=== PATIENT | male | born 1935 | race Caucasian/White ===

== ENCOUNTER 2023-11-04 09:01 | Observation (INO) | payer MEDICARE ==
[~2023-11-04] VITALS: Ht 182.9 cm; Wt 86.2 kg
[2023-11-04 09:24] LABS: BASOPHILS # (AUTO) 0.04 K/uL (0.00-0.20); BASOPHILS % (AUTO) 0.5 % (0.0-5.0); EOSINOPHILS # (AUTO) 0.08 K/uL (0.00-0.70); EOSINOPHILS % (AUTO) 0.9 % (0.0-8.0); HEMATOCRIT 39.5 % (42-54); IMMATURE GRANULOCYTE ABSOLUTE 0.06 K/uL (0-1); LYMPHOCYTES # (AUTO) 3.7 K/uL (1.0-4.8); LYMPHOCYTES % (AUTO) 42.7 % (21.0-51.0); MEAN CORPUSCULAR HEMOGLOBIN 30.3 pg (27.0-33.0); MEAN CORPUSCULAR HGB CONC 34.2 g/dL (32.0-36.0); MEAN CORPUSCULAR VOLUME 88.8 fL (79-99); MONOCYTES # (AUTO) 0.5 K/uL (0.1-1.0); MONOCYTES % (AUTO) 6.2 % (3.0-13.0); NEUTROPHILS # (AUTO) 4.3 K/uL (1.8-7.7); PLATELET COUNT (AUTO) 199 K/uL (130-400); RED BLOOD CELL COUNT(AUTO) 4.45 MIL/uL (4.50-6.20); RED CELL DISTRIBUTION WIDTH 13.9 % (11.0-15.5); WHITE BLOOD COUNT (AUTO) 8.8 K/uL (4.8-10.8)
[2023-11-04 09:33] LABS: CREATININE 1.2 mg/dL (0.5-1.5); POTASSIUM 3.6 mmol/L (3.5-5.1)
[2023-11-04 09:38] LABS: ALBUMIN 3.8 g/dL (3.5-5.0); BILIRUBIN,TOTAL 0.6 mg/dL (0.2-1.0); TOTAL PROTEIN, SERUM 7.4 g/dL (6.0-8.3)
[2023-11-04 09:42] LABS: INR 0.94 (0.85-1.15)
[2023-11-04 09:44] LABS: PARTIAL THROMBOPLASTIN TIME 28.2 SEC (26.3-35.5)
[2023-11-04] MEDS ORDERED: ASPIRIN 325MG TAB PO ONE (10:30)
[2023-11-04] MEDS ORDERED: INDA1.255 PO (11:07)
[2023-11-04] MEDS ORDERED: LOSA50TA64 PO (11:07)
[2023-11-04] MEDS ORDERED: PRAV80TA21 PO (11:07)
[2023-11-04] MEDS ORDERED: POTA10CA85 PO (11:07)
[2023-11-04] MEDS ORDERED: APIX5TAB PO (11:07)
[2023-11-04] MEDS ORDERED: ONDANSETRON 4MG INJ IVP PRN (17:30)
[2023-11-04] MEDS ORDERED: ACETAMINOPHEN 325 MG TAB PO PRN (17:30)
[2023-11-04] MEDS ORDERED: HYDRALAZINE 20MG/ML VIAL IV PRN (17:30)
[2023-11-04] MEDS ORDERED: ATORVASTATIN 20 MG TABLET PO SCH (21:00)
[2023-11-04] MEDS ORDERED: NON-FORMULARY MEDICATION 1 EACH (Pravastatin Sodium 80 MG) PO SCH (21:00)
[2023-11-05] MEDS ORDERED: ENOXAPARIN SODIUM 100 MG/1 ML SQ SCH ×2 (01:00→09:00)
[2023-11-05] MEDS ORDERED: ENOXAPARIN SODIUM 40 MG/0.4 ML SYRINGE SQ SCH (09:00)
[2023-11-05] MEDS ORDERED: INDAPAMIDE 1.25 MG PO SCH (09:00)
[2023-11-05] MEDS ORDERED: LOSARTAN 50 MG TABLET PO SCH (09:00)
[2023-11-05] MEDS ORDERED: REGADENOSON 0.4 MG/5 ML PF SYG IVP SCH (09:00)
[2023-11-05] MEDS ORDERED: ASPIRIN 81 MG EC TAB PO SCH (09:00)
[2023-11-05] MEDS ORDERED: FAMOTIDINE 20MG TAB PO SCH (09:00)
[2023-11-05 09:03] LABS: THYROID STIMULATING HORMONE 2.18 uIU/mL (0.36-3.74)
[2023-11-05 13:20] VITALS: BP 134/66; PULSE 66; RESP 18; O2SAT 99
== END 2023-11-05 14:55 | disposition home or self-care (01) ==
LOC: EDH 09:01 → EDHIP 10:45 → INTOOBSV 10:45 → EDHIP 11-05 14:55
PROVIDERS: ADMIT Hospitalist; ATTEND Hospitalist
DX: I20.0 Unstable angina (principal); E86.0 Dehydration; E78.5 Hyperlipidemia, unspecified; I82.401 Acute embolism and thrombosis of unspecified deep veins of right lower extremity; D68.69 Other thrombophilia; E78.00 Pure hypercholesterolemia, unspecified; I10 Essential (primary) hypertension; Z79.82 Long term (current) use of aspirin; Z79.01 Long term (current) use of anticoagulants; Z79.899 Other long term (current) drug therapy; Z87.891 Personal history of nicotine dependence; Z88.0 Allergy status to penicillin
CPT/HCPCS: 99285; 83735; 84484 ×3; 80053; 85025; 85378; 85610; 85730; 36415 ×2; 71045; 93306; 93970; 93005; 96372; 84443; 80061; 93017; 78452; G0378 ×3; J1650; J2785; A9500 ×2; 96374